=== PATIENT | female | born 1970 | race African-American/Black ===

== ENCOUNTER 2021-05-11 14:05 | Emergency (ER) | payer OTHER ==
[~2021-05-11] VITALS: Ht 154.9 cm; Wt 69.8 kg
[2021-05-11 14:20] VITALS: BP 111/73
[2021-05-11] MEDS ORDERED: BACTRIM DS TAB1 EACH PO (15:13)
[2021-05-11] MEDS ORDERED: MELOXICAM15 MG PO (15:13)
[2021-05-11] MEDS ORDERED: CEPHALEXIN500 MG PO (15:13)
== END 2021-05-11 16:00 | disposition home or self-care (01) ==
LOC: ER 14:05
DX: L02.91 Cutaneous abscess, unspecified (principal); F17.210 Nicotine dependence, cigarettes, uncomplicated; Z88.0 Allergy status to penicillin